=== PATIENT | female | born 1985 | race Two or more races ===

== ENCOUNTER 2020-01-14 13:24 | Emergency (ER) | payer MEDICAID, OTHER ==
[~2020-01-14] VITALS: Ht 167.6 cm; Wt 120.2 kg
[2020-01-14 14:13] LABS: Eosinophils # (auto) 0 10 ^3/uL (0-0.8); Eosinophils % (auto) 0.3 % (0.0-7.0); Hematocrit 36.3 % (36.0-46.0); Lymphocytes # (auto) 1.7 10 ^3/uL (0.4-5.4); Mean Corpuscular Hgb Conc. 33.7 g/dL (32.0-36.0)
[2020-01-14 14:15] LABS: Basophils # (auto) 0 10 ^3/uL (0-0.2); Basophils % (auto) 0.3 % (0.0-2.0); Hemoglobin 12.2 g/dL (12.2-16.2); Lymphocytes % (auto) 14.9 % (10.0-50.0); Mean Corpuscular Volume 80.1 fL (80.0-100.0); Monocytes # (auto) 0.8 10 ^3/uL (0-1.3); Monocytes % (auto) 6.6 % (0.0-12.0); Neutrophils # (auto) 8.9 10 ^3/uL (1.6-8.6); Neutrophils % (auto) 77.9 % (37.0-80.0); Nucleated Red Blood Cells % 0.1 %; Platelet Count (auto) 307 10^3/uL (140-450); Red Blood Cells 4.53 10^6/uL (4.0-5.20); Red Cell Distribution Width 15.9 % (11.8-14.3); White Blood Cell 11.4 10^3/uL (4.4-10.8)
[2020-01-14 14:31] LABS: Anion Gap 9 (5-15); Blood Urea Nitrogen 5 mg/dL (7-18); Calcium 9.1 mg/dL (8.5-10.1); Carbon Dioxide 21 mmol/L (21-32); Chloride 106 mmol/L (98-107); Glucose 93 mg/dL (74-106); Potassium 3.6 mmol/L (3.5-5.1); Sodium 136 mmol/L (136-145)
[2020-01-14 14:38] LABS: Alanine Aminotransferase 24 U/L (13-56); Alkaline Phosphatase 63 U/L (45-117); Aspartate Aminotransferase 14 U/L (15-37); BUN/Creatinine Ratio 10.4; Bilirubin, Total 0.2 mg/dL (0.2-1.0); GFR African American 190 mL/min; GFR Non-African American 157 mL/min; Total Protein 7.8 g/dL (6.4-8.2)
[2020-01-14 17:18] LABS: Urine Bacteria NONE SEEN /hpf (None Seen); Urine Blood Negative /uL (Negative); Urine Mucus FEW (None Seen); Urine Specific Gravity 1.008 (1.001-1.035); Urine WBC 2 /hpf (0 - 5)
[2020-01-14 18:00] VITALS: BP 107/58
== END 2020-01-14 19:23 | disposition home or self-care (01) ==
LOC: ER 13:24
DX: O99.512 Diseases of the respiratory system complicating pregnancy, second trimester (principal); R06.00 Dyspnea, unspecified; Z3A.17 17 weeks gestation of pregnancy; Z90.49 Acquired absence of other specified parts of digestive tract; Z20.828 Contact with and (suspected) exposure to other viral communicable diseases
CPT/HCPCS: 36415; 71045; 80053; 81001; 84484; 85025; 87635; 93005; 93970